=== PATIENT | female | born 1995 | race African-American/Black ===

== ENCOUNTER 2021-01-12 18:52 | Emergency (ER) | payer OTHER ==
[~2021-01-12] VITALS: Ht 170.2 cm; Wt 62.6 kg
[2021-01-12] MEDS ORDERED: NORCO5 PO ×2 (21:42→21:43)
[2021-01-12] MEDS ORDERED: IBU600 MG PO (21:44)
[2021-01-12 21:47] VITALS: BP 117/72
== END 2021-01-12 22:02 | disposition home or self-care (01) ==
LOC: ER 18:52
DX: S40.012A Contusion of left shoulder, initial encounter (principal); J45.909 Unspecified asthma, uncomplicated; V49.49XA Driver injured in collision with other motor vehicles in traffic accident, initial encounter; Y93.I9 Activity, other involving external motion; Y92.488 Other paved roadways as the place of occurrence of the external cause; Y99.8 Other external cause status

== ENCOUNTER 2021-03-15 18:24 | Emergency (ER) | payer OTHER ==
[~2021-03-15] VITALS: Ht 170.2 cm; Wt 62.6 kg
[~2021-03-15 18:24] MED LIST: IBU600 MG PO; NORCO5 PO
[2021-03-15] MEDS ORDERED: FLOVENT HFA 4444 MCG INH (19:25)
[2021-03-15] MEDS ORDERED: VENTOLIN HFA 1818 GM INH (19:26)
[2021-03-15] MEDS ORDERED: PREDNISONE 20 M20 MG PO (19:28)
[2021-03-15] MEDS ORDERED: VISTARIL 25 MG25 M1 PO (19:29)
[2021-03-15 19:59] VITALS: BP 115/66
== END 2021-03-15 20:00 | disposition home or self-care (01) ==
LOC: ER 18:24
DX: L27.0 Generalized skin eruption due to drugs and medicaments taken internally (principal); T50.B95A Adverse effect of other viral vaccines, initial encounter; J45.909 Unspecified asthma, uncomplicated; Z79.51 Long term (current) use of inhaled steroids; Z79.899 Other long term (current) drug therapy